=== PATIENT | male | born 1960 | race Caucasian/White ===

== ENCOUNTER 2017-06-15 11:50 | Emergency (ER) | payer BC, OTHER ==
[~2017-06-15] VITALS: Ht 172.7 cm; Wt 87.5 kg
[2017-06-15 11:56] VITALS: TEMP 37; Ht 172.7 cm; Wt 87.5 kg
[2017-06-15] MEDS ORDERED: DIAZEPAM INJ 5 MG/ML 2 ML CARP IM STA (12:17)
[2017-06-15] MEDS ORDERED: KETOROLAC TROMETHAMINE 60 MG/2 ML VIAL IM STA (12:17)
--- NOTE | 2017-06-15 12:27 | EMERGENCY ROOM VISIT NOTE ---
ED Visit Note First contact with patient: 12:02 CHIEF COMPLAINT: Neck pain HISTORY OF PRESENT ILLNESS: This 56-year-old male patient presents to the emergency department ambulatory, complaining of pain in the neck for 2 days. The patient states he awoke yesterday, noticing terrible neck pain and difficulty turning or moving his head. He states for the past month, he has been experiencing some right arm pain, however this has improved. The patient is concerned that he could have pinched something in his neck which is causing both of the pain. The patient was taking 600 mg ibuprofen every 4 hours yesterday. He also tried ice, heat, and muscle rub without relief. He states nothing seems to help the pain, but going over bumps, movement, and driving hurts the neck. He does have a history of similar pain several years ago, and states he was diagnosed with arthritis. 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 The patient rates the pain as severe and 10/10. The patient denies numbness and tingling. The patient denies chest pain or shortness of breath. There was no head injury and no loss of consciousness. The patient denies headache, blurred vision, abdominal pain, nausea, or vomiting. The patient denies change in personality. Of note, the patient does have a history of hypertension, did not take his medications this morning. He denies recent illness. REVIEW OF SYSTEMS: A 10 system review of systems was completed with positives and pertinent negatives listed in the HPI. ALLERGIES: None MEDICATIONS: Hydrochlorothiazide, lisinopril PMH: Hypertension SOCIAL HISTORY: The patient lives locally with family. He denies drug use. He admits to drinking 3-4 alcoholic beverages per day and smoking approximately 1 pack of cigarettes per day. PHYSICAL EXAM: VITALS: Vitals are noted on the nurse's note and reviewed by myself. Vital signs stable. GENERAL: This is a 56-year-old white male, in no acute distress, nondiaphoretic, well-developed well-nourished. SKIN: Capillary reflex less than 2 seconds. HEENT: Normocephalic. PERRLA. EOMI. Nares patent. Mucous membranes moist. Neck is supple without nuchal rigidity. Cervical spine is not tender to palpation. The patient does have significant tenderness and spasms of the paraspinal muscles bilaterally, worse on the right. There is no lymphadenopathy. MUSCULOSKELETAL: The patient has full range of motion of the bilateral arms. Strength 5/5 of the bilateral upper extremities. The patient has tenderness with any attempts to move the neck. NEURO: Patient was alert and oriented to person place and time. Normal sensation to light and sharp touch. No focal neurologic deficits. RADIOLOGY: CERVICAL SPINE 3 VIEWS CLINICAL HISTORY: Atraumatic neck pain. FINDINGS: AP, lateral, and odontoid views of the cervical spine are correlated with CT scan of the neck dated 03/12/2008. The skeletal structures appear osteopenic. There is no radiographic evidence of fracture or malalignment. The odontoid process and lateral masses are intact as seen on the open-mouth view. Advanced productive degenerative change is noted at the atlantodental articulation. The spinolaminar line is maintained. Vertebral body height and alignment are preserved throughout the cervical spine. There is straightening of cervical lordosis with reversal centered at C4-C5. Anterior osteophytes are seen in the lower cervical region. There is mild disc space narrowing seen at C5-C6 and C6-C7. Posterior disc osteophyte complexes at these levels may contribute to acquired compromise of the central canal. Mild facet arthropathy is noted on the frontal view. The prevertebral soft tissues are within normal limits. Imaged apical lung parenchyma appears clear. IMPRESSION: 1. No acute bony abnormality is seen involving the cervical spine. 2. Osteopenia and mild spondylotic change as above. Dictated: 06/15/2017 12:44 PM Transcribed: 06/15/2017 1:37 PM ABNER_José Luis Electronically signed by: Dante Talbot M.D. 06/15/2017 1:43 PM Dictated Date/Time: 06/15/2017 12:44 PM EMERGENCY DEPARTMENT COURSE: I examined the patient. He is given 60 mg Toradol and 10mg Valium IM. He was sent for C-spine x-ray. He did note mild improvement in his symptoms with these medications. X-rays were reviewed by myself and radiologist and do not reveal any acute abnormality regarding the cervical spine. There was osteopenia and mild spondylitic change. I discussed results of the x-ray with the patient and his at bedside. He will be treated for the next 2-3 days with anti-inflammatories and muscle relaxers to help decrease inflammation and increased range of motion. The patient is encouraged to follow up with his primary care on Saturday or Saturday for recheck and further management. Prescriptions were sent, and discharge instructions were reviewed. The patient was discharged home in good condition. I attest that I have personally reviewed the patient's current medication list. Blood Pressure Screening: Patient was found to have an elevated blood pressure due to circumstances and history of HTN. He does take BP medications, but did not take them today. He will take his medication as soon as he gets home and his PCP will re-check the BP early next week when he sees them regarding his neck pain. I do not believe that the patient requires hypertension monitoring. Etiologies such as cervicalgia, torticollis, sprain, strain, fracture, epidural abscess, osteomyelitis, metastatic disease, infection, as well as others were entertained. DIAGNOSIS: Torticollis Current/Historical Medications Scheduled Hydrochlorothiazide (Hctz), 25 MG PO DAILY Lisinopril (Prinivil), 30 MG PO DAILY Scheduled PRN Diazepam (Valium), 5 MG PO QID PRN for Muscle Spasms Allergies Coded Allergies: No Known Allergies (Unverified , 06/15/17) Vital Signs Date Time Temp Pulse Resp B/P (MAP) Pulse Ox O2 Delivery O2 Flow Rate FiO2 06/15/17 13:54 95 18 201/136 97 Room Air 06/15/17 12:07 198/119 06/15/17 11:56 37.0 103 18 194/129 98 Room Air Medications Administered Medications (Trade) Dose Ordered Sig/Geovany Route Start Time Stop Time Status Last Admin Dose Admin Diazepam (Valium Inj) 10 mg NOW STAT IM 06/15/17 12:17 06/15/17 12:19 DC 06/15/17 12:25 10 MG Ketorolac Tromethamine (Toradol Inj) 60 mg NOW STAT IM 06/15/17 12:17 06/15/17 12:20 DC 06/15/17 12:25 60 MG Departure Information Impression Primary Impression: Torticollis, acute Dispostion Home / Self-Care Condition GOOD Prescriptions Diazepam (Valium) 5 Mg Tab 5 MG PO QID Y for Muscle Spasms for 3 Days, #12 TAB Prov: Shivani Hartmann, PAGiana 06/15/17 Patient Instructions ED Neck Back Pain General, ED Spasm Neck No Injury, My [facility], Torticollis Additional Instructions You have been treated in the Emergency Department for Neck Pain. You have received pain medicine in the emergency department which impairs your ability to operate a vehicle. It is illegal for you to drive after receiving these medicines. You have been prescribed diazepam (Valium) 1tabs orally, up to 4 times per day. Do NOT exceed 4 tabs per day. Take your first dose at bedtime as it can make you drowsy. Always take all medications as prescribed. Do not take this medication and drive, as it is a controlled substance. This medication can be addictive. Use caution while taking it. For pain control, you can use the following [id number] medicines (if >12 yo): Ibuprofen(Motrin, Advil) may be used for fever or pain. Use 600mg every six hours as needed. Take with food. Avoid using more than 2400mg in a 24 hour period. Do not use 2400mg per day for more than three consecutive days without physician direction. Prolonged inappropriate use can lead to stomach upset or ulcers. (AND/OR) Acetaminophen(Tylenol) may be used for fever or pain. Use 1000mg every six hours as needed. Avoid using more than 3000mg in a 24 hour period. Use a heating pad can be used over the area for continued soothing relief. You should schedule a follow-up appointment in 2-3 days with your Primary Care Provider for further evaluation and treatment of your neck pain. Return to the Emergency Department if your current symptoms worsen despite treatment course outlined above, or if you develop any of the following symptoms : intractable pain despite aforementioned treatment course, facial droop, slurred speech, unilateral weakness, or worsening of her current symptoms.
[2017-06-15] MEDS ORDERED: HYDR25TA4 PO (13:31)
[2017-06-15] MEDS ORDERED: LISI-526 PO (13:31)
--- NOTE | 2017-06-15 13:37 | DIAGNOSTIC IMAGING REPORT ---
CERVICAL SPINE 3 VIEWS CLINICAL HISTORY: Atraumatic neck pain. FINDINGS: AP, lateral, and odontoid views of the cervical spine are correlated with CT scan of the neck dated 03/12/2008. The skeletal structures appear osteopenic. There is no radiographic evidence of fracture or malalignment. The odontoid process and lateral masses are intact as seen on the open-mouth view. Advanced productive degenerative change is noted at the atlantodental articulation. The spinolaminar line is maintained. Vertebral body height and alignment are preserved throughout the cervical spine. There is straightening of cervical lordosis with reversal centered at C4-C5. Anterior osteophytes are seen in the lower cervical region. There is mild disc space narrowing seen at C5-C6 and C6-C7. Posterior disc osteophyte complexes at these levels may contribute to acquired compromise of the central canal. Mild facet arthropathy is noted on the frontal view. The prevertebral soft tissues are within normal limits. Imaged apical lung parenchyma appears clear. IMPRESSION: 1. No acute bony abnormality is seen involving the cervical spine. 2. Osteopenia and mild spondylotic change as above. Dictated: 06/15/2017 12:44 PM Transcribed: 06/15/2017 1:37 PM ABNER_José Luis Electronically signed by: Dante Talbot M.D. 06/15/2017 1:43 PM Dictated Date/Time: 06/15/2017 12:44 PM
[2017-06-15 13:54] VITALS: BP 201/136; PULSE 95; O2SAT 97
[2017-06-15] MEDS ORDERED: DIAZ-165 PO (13:54)
== END 2017-06-15 14:05 | disposition home or self-care (01) ==
LOC: C.EDB 11:52 → C.EDD 14:05
DX: M43.6 Torticollis (principal); I10 Essential (primary) hypertension